=== PATIENT | female | born 1975 ===

== ENCOUNTER 2024-06-30 12:01 | Emergency (ER) | payer OTHER ==
[2024-06-30] MEDS: Ketorolac 60 MG/2 ML SDV IM ONE (13:38)
== END 2024-06-30 14:40 | disposition home or self-care (01) ==
LOC: JD.ED 12:01
DX: S42.202A Unspecified fracture of upper end of left humerus, initial encounter for closed fracture (principal); W19.XXXA Unspecified fall, initial encounter
CPT/HCPCS: 73030; 73060; 96372; 99283; J1885